=== PATIENT | male | born 1975 | race Caucasian/White ===

== ENCOUNTER 2023-01-31 23:50 | Emergency (ER) | payer OTHER ==
[~2023-01-31] VITALS: Ht 177.8 cm; Wt 77.1 kg
[2023-02-01] MEDS ORDERED: PREDNISONE50 MG PO (02:20)
== END 2023-02-01 02:40 | disposition home or self-care (01) ==
LOC: ED 23:50
DX: S43.401A Unspecified sprain of right shoulder joint, initial encounter (principal); X58.XXXA Exposure to other specified factors, initial encounter; Y93.89 Activity, other specified; Y92.009 Unspecified place in unspecified non-institutional (private) residence as the place of occurrence of the external cause; Y99.8 Other external cause status

== ENCOUNTER → 2023-04-14 | Outpatient (CLI) | payer OTHER ==
[~2023-04-14] MED LIST: PREDNISONE50 MG PO
== END | disposition home or self-care (01) ==
LOC: MRI 02:45
PROVIDERS: ATTEND Orthopaedic Surgery
DX: M75.101 Unspecified rotator cuff tear or rupture of right shoulder, not specified as traumatic (principal); M75.41 Impingement syndrome of right shoulder; M19.011 Primary osteoarthritis, right shoulder

== ENCOUNTER → 2023-06-15 | Day surgery (SDC) | payer OTHER ==
[2023-06-12 12:57] VITALS: BP 123/70
[2023-06-12 14:10] LABS: BUN 12 mg/dl (9-23); CHLORIDE 103 mmol/L (98-107); POTASSIUM 4.3 mmol/L (3.4-5.1)
[~2023-06-15] VITALS: Ht 182.8 cm; Wt 77.1 kg
[~2023-06-15] MED LIST changes: +Bupivacaine Hydrochloride/Ep2 30 ML VIAL ONE; +DEXAMETHASONE SODIUM PHOSP/PRESERVATIVE FREE 10 MG/ML VIAL ONE; +EPINEPHrine Hydrochloride 1 MG/ML AMP ONE; +GLYCOPYRROLATE IN WATER/PF 0.4 MG/2 ML SYRINGE IV ONE; +HYDROCODONE-AC1 EAC1 PO; +Lactated Ringer's Solution 1,000 ML IV ONE; +Lactated Ringer's Solution 2,000 ML IV ONE; +Midazolam Hydrochloride 2 MG/2 ML VIAL IV ONE; +Midazolam Hydrochloride 2 MG/2 ML VIAL ONE; +Neostigmine Methylsulfate 3 MG/3 ML SYRINGE IV ONE; +PROPOFOL 200 MG/20 ML VIAL IV ONE; +ROCURONIUM BROMIDE 50 MG/5 ML SYRINGE IV ONE; +Ropivacaine Hydrochloride 5 MG/ML 20 ML AMP IJ ONE; +SEVOFLURANE 250 ML BOT INH ONE; +ceFAZolin sodium 1 GM VIAL ONE; +ceFAZolin sodium/sodium chlor 1 GM/10 ML SYR IV SCH; +ceFAZolin sodium/sodium chlor 10 ML IV ONE; +ePHEDrine Sulfate 25 MG/5 ML SYRINGE IV ONE
[2023-06-15 07:36] VITALS: BP 122/70
[2023-06-15 11:17] VITALS: BP 117/40
[2023-06-15 11:32] VITALS: BP 114/67
[2023-06-15 11:47] VITALS: BP 104/68
[2023-06-15 12:02] VITALS: BP 113/66
[2023-06-15 12:17] VITALS: BP 111/69
== END | disposition home or self-care (01) ==
LOC: SDC 06-12 13:15
PROVIDERS: ATTEND Orthopaedic Surgery
DX: M75.41 Impingement syndrome of right shoulder (principal); M19.011 Primary osteoarthritis, right shoulder; M24.511 Contracture, right shoulder; F17.220 Nicotine dependence, chewing tobacco, uncomplicated

== ENCOUNTER → 2023-06-23 | Outpatient (CLI) | payer OTHER ==
[~2023-06-23] MED LIST changes: -Bupivacaine Hydrochloride/Ep2 30 ML VIAL ONE; -DEXAMETHASONE SODIUM PHOSP/PRESERVATIVE FREE 10 MG/ML VIAL ONE; -EPINEPHrine Hydrochloride 1 MG/ML AMP ONE; -GLYCOPYRROLATE IN WATER/PF 0.4 MG/2 ML SYRINGE IV ONE; -Lactated Ringer's Solution 1,000 ML IV ONE; -Lactated Ringer's Solution 2,000 ML IV ONE; -Midazolam Hydrochloride 2 MG/2 ML VIAL IV ONE; -Midazolam Hydrochloride 2 MG/2 ML VIAL ONE; -Neostigmine Methylsulfate 3 MG/3 ML SYRINGE IV ONE; -PROPOFOL 200 MG/20 ML VIAL IV ONE; -ROCURONIUM BROMIDE 50 MG/5 ML SYRINGE IV ONE; -Ropivacaine Hydrochloride 5 MG/ML 20 ML AMP IJ ONE; -SEVOFLURANE 250 ML BOT INH ONE; -ceFAZolin sodium 1 GM VIAL ONE; -ceFAZolin sodium/sodium chlor 1 GM/10 ML SYR IV SCH; -ceFAZolin sodium/sodium chlor 10 ML IV ONE; -ePHEDrine Sulfate 25 MG/5 ML SYRINGE IV ONE
== END | disposition home or self-care (01) ==
LOC: ORTHO 04:07
PROVIDERS: ATTEND Orthopaedic Surgery
DX: M25.711 Osteophyte, right shoulder (principal); M75.41 Impingement syndrome of right shoulder

== ENCOUNTER 2024-03-08 09:23 | Emergency (ER) | payer OTHER ==
[~2024-03-08] VITALS: Ht 182.8 cm; Wt 79.4 kg
[2024-03-08] MEDS ORDERED: OXYCODONE-ACET1 EAC3 PO (10:12)
[2024-03-08] MEDS ORDERED: Ketorolac Tromethamine 30 MG/ML VIAL IM ONE (11:30)
[2024-03-08 11:45] LABS: BASO % 0.5 % (0.0-1.0); EOS # 0.3 10*3/uL (0.0-0.4); EOS % 3.2 % (1.0-4.0); HEMATOCRIT 47.2 % (42.0-52.0); MEAN CELL VOLUME 87.4 fl (80.0-94.0); MEAN CORPUSCULAR HGB 29.1 pg (27.0-31.0); MEAN CORPUSCULAR HGB CONC 33.3 g/dl (33.0-37.0); MEAN PLATELET VOLUME 9.7 fl (9.6-12.3); MONO % 11.5 % (3.0-9.0); NEUT % 56.6 % (47.0-73.0); PLATELET COUNT AUTOMATED 248 10*3/uL (130-400); RED CELL DISTRI WIDTH 13.1 % (0-14.5); WHITE BLOOD COUNT 8.8 10*3/uL (4.8-10.8)
[2024-03-08 12:08] LABS: ALKALINE PHOSPHATASE 74 U/L (46-116); BUN 12 mg/dl (9-23); CHLORIDE 103 mmol/L (98-107); LIPASE 31 U/L (12-53); POTASSIUM 4.5 mmol/L (3.4-5.1); SGPT/ALT 32 U/L (5-49); TOTAL PROTEIN 7.3 gm/dL (6.0-8.0)
[2024-03-08 12:19] LABS: BILIRUBIN Negative (Negative); BLOOD Negative (Negative); CLARITY Clear (Clear); COLOR Yellow (Yellow); GLUCOSE Negative (Negative); KETONE Trace (Negative); LEUKO ESTERASE Negative (Negative); NITRITE Negative (Negative); PH 5.5 (4.5-8.0); SPECIFIC GRAVITY >= 1.030 (1.001-1.030); UROBILINOGEN 0.2 E.U./dl (0.0-1.0)
[2024-03-08] MEDS ORDERED: METHOCARBAMOL750 M1 PO (13:39)
[2024-03-08] MEDS ORDERED: PREDNISONE20 M1 PO (13:39)
== END 2024-03-08 13:52 | disposition home or self-care (01) ==
LOC: ED 09:23
PROVIDERS: Emergency Medicine
DX: M54.50 Low back pain, unspecified (principal)

== ENCOUNTER 2024-06-13 20:16 | Emergency (ER) | payer OTHER ==
[~2024-06-13] VITALS: Ht 180.3 cm; Wt 82.6 kg
[~2024-06-13 20:16] MED LIST changes: +METHOCARBAMOL750 M1 PO; +OXYCODONE-ACET1 EAC3 PO; +PREDNISONE20 M1 PO
[2024-06-13] MEDS ORDERED: Acetaminophen/Hydrocodone 5 MG/325 MG TABLET PO ONE (21:45)
== END 2024-06-13 21:52 | disposition home or self-care (01) ==
LOC: ED 20:16
DX: S06.0X0A Concussion without loss of consciousness, initial encounter (principal); S16.1XXA Strain of muscle, fascia and tendon at neck level, initial encounter; Z79.899 Other long term (current) drug therapy; V89.2XXA Person injured in unspecified motor-vehicle accident, traffic, initial encounter; Y93.89 Activity, other specified; Y92.488 Other paved roadways as the place of occurrence of the external cause; Y99.8 Other external cause status

== ENCOUNTER 2024-08-12 21:37 | Emergency (ER) | payer OTHER ==
[~2024-08-12] VITALS: Ht 182.8 cm; Wt 81.6 kg
[2024-08-12] MEDS ORDERED: Ondansetron Hydrochloride 4 MG TAB SL ONE (22:25)
[2024-08-12] MEDS ORDERED: PENICILLIN V POTASSIUM 500 MG TAB PO ONE (22:25)
[2024-08-12] MEDS ORDERED: Acetaminophen/Hydrocodone 5 MG/325 MG TABLET PO ONE (22:25)
[2024-08-12] MEDS ORDERED: PENICILLIN VK500 MG PO (22:28)
== END 2024-08-12 22:43 | disposition home or self-care (01) ==
LOC: ED 21:37
DX: K02.9 Dental caries, unspecified (principal); Z79.899 Other long term (current) drug therapy